=== PATIENT | male | born 1980 | race Caucasian/White ===

== ENCOUNTER 2017-10-31 05:13 | Emergency (ER) | payer MEDICAID ==
[~2017-10-31] VITALS: Ht 175.3 cm; Wt 79.4 kg
[2017-10-31 05:20] VITALS: BP 124/85
== END 2017-10-31 05:53 | disposition home or self-care (01) ==
LOC: ER 05:20
DX: K04.90 Unspecified diseases of pulp and periapical tissues (principal); F17.200 Nicotine dependence, unspecified, uncomplicated
CPT/HCPCS: 99283; A4606; Z7610

== ENCOUNTER 2020-03-04 13:16 | Inpatient (IN) | payer MEDICAID, OTHER ==
[~2020-03-04] VITALS: Ht 172.7 cm; Wt 79.4 kg
[2020-03-04] MEDS ORDERED: FEE PK DOSING 1 MIN EA MC ONE (13:20)
--- NOTE | 2020-03-04 13:25 | NUR ---
bibself, c/o left leg pain, redness and swelling X 2 days, denies injury/trauma 08/26 ps, homeless. to ER bed 4, hooked to monitor, changed to hosp gown, warm blanket provided, awaiting MD rod.
--- NOTE | 2020-03-04 14:04 | NUR ---
RASHI LYLES AT BEDSIDE
--- NOTE | 2020-03-04 14:22 | NUR ---
DREDGE OPERATOR SUPERVISOR AT BEDSIDE
[2020-03-04 14:26] LABS: BASOPHILS % (AUTO) 0.2 % (0.0-2.0); HEMATOCRIT 35 % (39-51); HEMOGLOBIN 11.6 g/dL (13.5-17.5); LYMPHOCYTES # (AUTO) 1.5 /CMM (0.8-4.8); LYMPHOCYTES % (AUTO) 11.8 % (20.0-44.0); MEAN CORPUSCULAR HGB CONC 33 g/dl (31.0-36.0); MEAN CORPUSCULAR VOLUME 79 fL (80-96); MONOCYTES # (AUTO) 0.8 /CMM (0.1-1.30); MONOCYTES % (AUTO) 6.3 % (2.0-12.0); NEUTROPHILS # (AUTO) 10.3 /CMM (1.8-8.9); NEUTROPHILS % (AUTO) 81.7 % (43.0-81.0); PLATELET COUNT (AUTO) 159 /CMM (150-450); RED BLOOD CELL COUNT(AUTO) 4.46 MIL/uL (4.5-6.0); WHITE BLOOD COUNT (AUTO) 12.6 K/uL (4.3-11.0)
[2020-03-04] MEDS ORDERED: VANCOMYCIN 1 GM in IV D5W 250 ML IV ONE (14:30)
[2020-03-04] MEDS ORDERED: HYDROCODONE/APAP 5/325MG 1 EACH TABLET PO ONE (14:30)
[2020-03-04 14:38] LABS: CALCIUM, SERUM 8.5 mg/dL (8.5-10.1); CARBON DIOXIDE 27 mmol/L (21-32); CHLORIDE 95 mmol/L (98-107); GLUCOSE 107 mg/dL (74-106); POTASSIUM 3.8 mmol/L (3.5-5.1); SODIUM SERUM 130 mmol/L (136-145); UREA NITROGEN, BLOOD 12 mg/dL (7-18)
[2020-03-04] MEDS ORDERED: VANCOMYCIN 1 GM VIAL ONE (14:40)
[2020-03-04] MEDS ORDERED: HYDROCODONE/APAP 5/325MG 1 EACH TABLET ONE (14:40)
--- NOTE | 2020-03-04 14:41 | NUR ---
US TECH AT BEDSIDE
[2020-03-04 14:52] LABS: ALANINE AMINOTRANSFERASE 55 U/L (12-78); ALBUMIN 2.8 g/dL (3.4-5.0); ALKALINE PHOSPHATASE 43 U/L (46-116); ASPARTATE AMINOTRANSFERASE 64 U/L (15-37); BILIRUBIN,DIRECT 0.3 mg/dL (0.0-0.2); BILIRUBIN,TOTAL 0.8 mg/dL (0.2-1.0); TOTAL PROTEIN, SERUM 7.2 g/dL (6.4-8.2)
[2020-03-04] MEDS ORDERED: IV NS 0.9% 1,000 ML BAG IV ONE (15:00)
--- NOTE | 2020-03-04 15:14 | NUR ---
PRECISE WINDER AT BEDSIDE
--- NOTE | 2020-03-04 16:02 | NUR ---
urine sample collected and sent to lab
[2020-03-04 16:26] LABS: APPEARANCE,URINE Clear (CLEAR); BILIRUBIN,URINE SMALL (NEGATIVE); BLOOD, URINE Negative Ery/uL (NEGATIVE); COLOR,URINE Yellow (YELLOW); KETONES,URINE 15 (NEGATIVE); LEUKOCYTE ESTERASE ,URINE Negative (NEGATIVE); NITRITE, URINE Negative (NEGATIVE); PH,URINE 6.5 (5.0-8.0); PROTEIN,URINE Trace mg/dl (NEGATIVE); UGLUCOSE Negative (NEGATIVE); UROBILINOGEN,URINE >=8.0 EU/dL (0.2)
[2020-03-04] MEDS ORDERED: Z GUARD REMEDY 2 OZ OINT TP PRN (16:30)
[2020-03-04] MEDS ORDERED: MAG HYDROX/AL HYDROX/SIMETH 30 ML UDC PO PRN (16:30)
[2020-03-04] MEDS ORDERED: ONDANSETRON HCL/PF 4 MG/2 ML VIAL IVP PRN (16:30)
[2020-03-04] MEDS ORDERED: MAGNESIUM HYDROXIDE 30 ML UDC PO PRN (16:30)
[2020-03-04 16:43] LABS: BACTERIA,URINE Few /HPF (None Seen); RBC,URINE 0-2 /HPF (0-2); SQUAMOUS EPITHELIAL CELL,UR Few /HPF (None Seen); WBC,URINE 0-2 /HPF (0-3)
--- NOTE | 2020-03-04 18:06 | NUR ---
REPORT GIVEN TO TONY RICHEY FOR FROYLAN
--- NOTE | 2020-03-04 18:52 | NUR ---
MS RN RECEIVING NOTES RECEIVED PATIENT VIA GURNEY IN MEDICALLY STABLE CONDITION AND VS WNL. PATIENT ON ROOM AIR BREATHING EVENLY WITH NO SOB NOTED. PATIENT COMPLAINING OF LEG PAIN. L ELBOW IV ACCESS GAUGE # 20. SAFETY PRECAUTIONS IN PLACE; BED IN LOW POSITION AND LOCKED, RAILS UP X2, CALL LIGHT WITHIN REACH. WILL ENDORSE TO LEAN MANAGER NURSE.
[2020-03-04 20:00] VITALS: BP 116/68
[2020-03-04] MEDS: ACETAMINOPHEN 325 MG TABLET PO PRN (20:53)
[2020-03-04] MEDS: HYDROCODONE/APAP 5/325MG 1 EACH TABLET PO PRN (20:54)
[2020-03-04] MEDS: IV NS 0.9% 1,000 ML IV SCH (20:55)
[2020-03-04] MEDS ORDERED: VANCOMYCIN 1 GM in IV D5W 250 ML IV SCH (23:00)
[2020-03-04] MEDS: VANCOMYCIN 1 GM in IV D5W 250 ML IV SCH (23:07)
[2020-03-05] MEDS: IV NS 0.9% 1,000 ML IV SCH (02:30)
--- NOTE | 2020-03-05 06:25 | NUR ---
MS RN NOTES AWAKE & RESPONSIVE. NOT IN ANY DISTRESS. NO SOB NOTED. DENIES ANY PAIN OR DISCOMFORT AT THIS TIME. WITH IVF INFUSING WELL. MONITORED ACCORDINGLY. CALL LIGHT WITHIN REACH. BED IN LOWEST POSITION. SR UP X 2 FOR SAFETY. WILL ENDORSE TO NEXT SHIFT.
[2020-03-05] MEDS: VANCOMYCIN 1 GM in IV D5W 250 ML IV SCH ×3 (07:05→22:19)
--- NOTE | 2020-03-05 07:32 | NUR ---
MS RN NOTES RECEIVED PATIENT ASLEEP IN BED, AROUSABLE TO VERBAL AND TACTILE STIMULI. HOB ELEVATED. NO SOB. DENIES ANY C/O PAIN NOR DISCOMFORT AT THIS TIME. IV ACCESS INTACT TO LEFT ELBOW INFUSING NS @ 75ML/HR ALVIN WELL. BED IN LOWEST POSITION, LOCKED. BED ALARM ON. CALL LIGHT WITHIN REACH. ABLE TO VERBALIZE NEEDS.
[2020-03-05 11:18] LABS: BASOPHILS % (AUTO) 0.1 % (0.0-2.0); EOSINOPHILS % (AUTO) 0.2 % (0.0-6.0); HEMATOCRIT 32 % (39-51); HEMOGLOBIN 10.7 g/dL (13.5-17.5); LYMPHOCYTES # (AUTO) 1.2 /CMM (0.8-4.8); LYMPHOCYTES % (AUTO) 10.9 % (20.0-44.0); MEAN CORPUSCULAR HGB CONC 33 g/dl (31.0-36.0); MEAN CORPUSCULAR VOLUME 78 fL (80-96); MONOCYTES % (AUTO) 8.4 % (2.0-12.0); NEUTROPHILS # (AUTO) 9.1 /CMM (1.8-8.9); NEUTROPHILS % (AUTO) 80.4 % (43.0-81.0); PLATELET COUNT (AUTO) 244 /CMM (150-450); RED BLOOD CELL COUNT(AUTO) 4.13 MIL/uL (4.5-6.0); WHITE BLOOD COUNT (AUTO) 11.3 K/uL (4.3-11.0)
[2020-03-05 11:32] LABS: CALCIUM, SERUM 8.2 mg/dL (8.5-10.1); CREATININE 0.9 mg/dL (0.6-1.3); POTASSIUM 3.7 mmol/L (3.5-5.1)
--- NOTE | 2020-03-05 12:15 | NUR ---
MS RN NOTES REPORT GIVEN TO HARSH FOR CONTINUATION OF CARE
--- NOTE | 2020-03-05 12:15 | NUR ---
M/S RN NOTES PATIENT RECEIVED ALERT AND ORIENTED X4, NO RESPIRATORY DISTRESS NOTED, PATIENT HAD TEMP OF 99.8, COOLING MEASURES IN PLACE. IV SITE INTACT AND PATENT ON THE LEFT ELBOW #20G. NS RUNNING AT 100ML/HR. COVID SWAB DONE AND SENT TO LAB. PATIENT'S NEEDS ATTENDED, BED ON LOWEST LOCKED POSITION, CALL LIGHT WITHIN REACH. WILL CONTINUE TO MONITOR.
[2020-03-05] MEDS: IV NS 0.9% 1,000 ML IV PRN (13:14)
[2020-03-05] MEDS: HYDROCODONE/APAP 5/325MG 1 EACH TABLET PO PRN (13:51)
[2020-03-05 16:00] VITALS: BP 114/67
--- NOTE | 2020-03-05 19:00 | NUR ---
M/S RN NOTES PATIENT AWAKE IN BED WATCHING TV, NO RESPIRATORY DISTRESS NOTED, PATIENT WITH NO C/O PAIN AT THIS TIME. SKIN WARM TO TOUCH, IV SITE ON THE RT HAND, INTACT AND PATENT #22G. NS RUNNING AT 100ML/HR. PATIENT'S NEEDS ATTENDED, BED ON LOWEST LOCKED POSITION, CALL LIGHT WITHIN REACH. WILL ENDORSE TO ONCOMING SHIFT
--- NOTE | 2020-03-05 19:27 | NUR ---
RN OPENING NOTES RECEIVED PATIENT AWAEK IN BED. A/OX4. NO SIGNS OF DISTRESS OR DISCOMFORT. BREATHING EVEN AND UNLABORED. IV ACCESS IN R HAND WITH NS INFUSING, PATENT AND INTACT, NO SIGNS OF REDNESS OR INFILTRATION. BED IN LOW LOCKED POSITION WITH SIDE RAILS X2. CALL LIGHT WITHIN REACH. WILL CONTINUE TO MONITOR.
[2020-03-05 20:00] VITALS: BP 122/79
[2020-03-05] MEDS: NICOTINE PATCH (21MG) 21 MG PATCH.TD24 TD SCH (21:49)
[2020-03-05] MEDS: ACETAMINOPHEN 325 MG TABLET PO PRN (21:49)
[2020-03-05] MEDS ORDERED: CLONIDINE HCL 0.1 MG TABLET PO PRN (22:00)
[2020-03-05] MEDS ORDERED: MORPHINE SULFATE INJ 4 MG/ML DISP.SYRIN IV ONE (22:00)
[2020-03-05] MEDS: GABAPENTIN 300 MG CAPSULE PO SCH (22:17)
--- NOTE | 2020-03-05 22:18 | NUR ---
RN NOTES ADMINISTERED MORPHINE 4MG ORDERED FOR L LEG PAIN 08/26. VSS. WILL CONTINUE TO MONITOR
[2020-03-06] MEDS: IV NS 0.9% 1,000 ML IV PRN (05:45)
[2020-03-06] MEDS: VANCOMYCIN 1 GM in IV D5W 250 ML IV SCH ×2 (06:21→19:08)
--- NOTE | 2020-03-06 06:42 | NUR ---
RN CLOSING NOTES PATIENT RESTING IN BED, EASILY AROUSABLE.. A/OX4. NO SIGNS OF DISTRESS OR DISCOMFORT. BREATHING EVEN AND UNLABORED. IV ACCESS IN R HAND WITH VANCO INFUSING, PATENT AND INTACT, NO SIGNS OF REDNESS OR INFILTRATION. ALL NEEDS MET. NO SIGNIFICANT CHANGES THROUGH THE NIGHT. PATIENT REFUSED SKIN ASSESSMENT PHOTO UPDATE, STATES PICTURES WERE JUST TAKEN THE OTHER NIGHT.BED IN LOW LOCKED POSITION WITH SIDE RAILS X2. CALL LIGHT WITHIN REACH. WILL ENDORSE TO AM SHIFT FOR FROYLAN.
--- NOTE | 2020-03-06 07:43 | NUR ---
WOUND CARE CONSULT: REVIEWED CHART, NURSING DOCUMENTATION AND PHOTOS WHICH INDICATE LOWER EXTREMITY REDNESS, SCABS AND DRY SCABS TO UPPER EXTREMITIES, PRESENT ON ADMISSION. WILL SEE PRN. CURRENT ALICIA SCORE IS 18.
[2020-03-06 08:00] VITALS: BP 124/68
[2020-03-06] MEDS: NICOTINE PATCH (21MG) 21 MG PATCH.TD24 TD SCH (08:00)
[2020-03-06] MEDS: GABAPENTIN 300 MG CAPSULE PO SCH ×3 (08:00→16:29)
[2020-03-06] MEDS: HYDROCODONE/APAP 5/325MG 1 EACH TABLET PO PRN (08:05)
--- NOTE | 2020-03-06 08:05 | NUR ---
RM NOTES RECEIVED PATIENT IN THE BED 39 Y/OLD MALE ON R/O COVID ISOLATION. PATIENT A/O X4, NO ACUTE RESPIRATORY DISTRESS, V/S TAKEN STABLE T-98.8 AT THIS TIME. SWOLLEN, AND REDNESS LEFT LOWER LEG, WAS COMPLAINING OF PAIN 7/10 PER PAIN SCALE. ENCOURAGED TO KEEP LEFT LEG ELEVATED USING PILLOWS, PATIENT TOLERATED BREAKFAST WELL, ADMINISTERED NARCO 5/325 PO PRN PER PATIENT REQUEST, CALL LIGHT WITHIN TO REACH, INFUSING VANCOMYCIN 250 ML/HR ON RIGHT HAND INTACT, CONTINUED MONITORING..
--- NOTE | 2020-03-06 10:38 | NUR ---
KAIDEN BERRY GET LAB RESULT CRITICAL POSITIVE FOR COVIS -19, AWARE OR WILL FOLLOW UP WITH TREATMENT.
--- NOTE | 2020-03-06 11:58 | NUR ---
RN NOTES PER HOSPITALIST BECAUSE OF PATIENT POSITIVE COVID, GET TO ORDER AZITHROMYCIN 500 ML IV DAILY, ALSO PATIENT WILL FOLLOW INFECTION CONTROL MD Dr BUSTAMANTE, ORDER TAKEN AND CARRIED OUT.
[2020-03-06] MEDS: AZITHROMYCIN 500 MG in IV D5W 250 ML IV SCH (13:25)
[2020-03-06] MEDS: MORPHINE SULFATE INJ 2 MG/ML DISP.SYRIN IV PRN ×2 (14:06→21:05)
--- NOTE | 2020-03-06 14:06 | NUR ---
RN NOTES ADMINISTERED MORPHINE SULFATE 2 MG/ML IV PUSH FOR LEFT LEG PAIN 08/26 PER PATIENT REQUEST, V/S TAKEN BP -122/68, P-70, R-18. INFUSING ZITHROMAX 250 ML/HR DAILY CONTINUED MONITORING.
--- NOTE | 2020-03-06 14:38 | NUR ---
Social service consult requested by MD for homelessness. Per MD notes and chart review, is a 39-year-old homeless male, recently discharged from [facility] brought in by self with complaints of left lower extremity pain and swelling x2 days. Pt states that he noticed swelling and pain to his left leg which has since been getting progressively worse, especially when bearing weight. Pt was tested for Covid-19 and tested positive as of 03/06/20. FAMILY PARTNER conducted the assessment via phone. FAMILY PARTNER introduced self, explained the role of the SW in the hospital and purpose of the call. Pt is alert and oriented x 4. Pt reports he is homeless and has been for more than 2 years. Pt has been living on the streets. 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 Pt was recently released from [facility]. Pt receives food stamps and GR on a monthly basis. Pt emergency contact is his sister Tess Calderón [phone]. Pt reports he has a history of Severe Anxiety and was taking prescribed Xanax for 5 years. Pt states, he does use Xanax recreationally and buys it off the streets and did so a few weeks ago. Pt denies suicidal and homicidal ideations and visual/auditory hallucinations at this time. Patient does have history of drug drug abuse, but states he has "clean" for over 2 months. Pt has a history of heroin use. Pt denies alcohol use. Pt uses marijuana and cigarettes daily. Pt reports to smoke a pack of cigarettes per day. FAMILY PARTNER provided pt with active listening, emotional support and supportive counseling. FAMILY PARTNER provided pt contact information for [facility] [employer] and encouraged pt to reach out. Pt when medically cleared will need to be referred to isolation and quarantine intake call center by [facility] for placement due to positive Covid-19/homelessness. FAMILY PARTNER updated pt's telephonic case manager Jose.
[2020-03-06 16:00] VITALS: BP 113/73
[2020-03-06] MEDS: ACETAMINOPHEN 325 MG TABLET PO PRN (16:29)
--- NOTE | 2020-03-06 16:29 | NUR ---
RN NOTES ADMINISTERED XANAX 0.5 MG PO PRN FOR ANXIETY, AND TYLENOL 650 MG PO PRN FOR T-99.5. GET ORDER MIDLINE INSERTION.
[2020-03-06] MEDS ORDERED: ALPRAZOLAM 0.25 MG TABLET PO PRN (16:30)
--- NOTE | 2020-03-06 18:30 | NUR ---
RN NOTES PATIENT STABLE, REFUSED PAIN, MEDICATION WERE ADMINISTERED FOR ANXIETY EFFECTIVE, , GET INSERTED MID LINE ON RIGHT UA INTACT, INFUSING VANCOMYCIN 250 ML/HR INTACT. PATIENT USING URINAL. CALL LIGHT WITHIN TO REACH. ENDORSED ONCOMING NURSE FOLLOW PLAN OF CARE.
[2020-03-06] MEDS: HYDROXYCHLOROQUINE 200 MG TABLET PO SCH (18:43)
--- NOTE | 2020-03-06 19:15 | NUR ---
RN OPENING NOTES Received patient asleep, easily awaken. On RA, no SOB/respiratory distress noted. No complaints made at this time. Kept on bed low and lock. On fall and aspiration precautions. Will continue to monitor accordingly.
[2020-03-06 20:58] VITALS: BP 115/74
--- NOTE | 2020-03-06 21:25 | NUR ---
RN NOTES Patient asked for Xanax. Informed patient current ordered Xanax at this time is 0.5mg BID. Per patient he takes 4mg Xanax at home. Patient threaten to leave AMA if not receiving his desired Xanax dose. Explained to patient that MD has to be notified for modification of order. Also explained to patient the importance of being on tele monitor but patient refused despite education given.
[2020-03-06] MEDS ORDERED: ALPRAZOLAM 1 MG TABLET PO ONE (21:30)
[2020-03-06] MEDS ORDERED: ALPRAZOLAM 1 MG TABLET ONE (21:44)
--- NOTE | 2020-03-06 22:04 | NUR ---
RN NOTES Received order from JOHN Dsouza. Administered Xanax 1mg at this time. Patient ok to stay in the hospital. Reoffered to be on tele monitor, patient insisted to refuse at this time. Will continue to monitor accordingly.
--- NOTE | 2020-03-06 23:08 | NUR ---
RN NOTES - PT REFUSED BLOOD DRAW FOR LAB layout technician at bedside to draw for labs, patient refused despite education provided. notified.
[2020-03-07] MEDS: VANCOMYCIN 1 GM in IV D5W 250 ML IV SCH ×3 (02:14→20:59)
[2020-03-07] MEDS: MORPHINE SULFATE INJ 2 MG/ML DISP.SYRIN IV PRN ×3 (06:37→21:01)
--- NOTE | 2020-03-07 06:42 | NUR ---
RN CLOSING NOTES Patient noted to refused CXR and rapid influenza A+B. Per patient he wants to sleep now and to it later. Patient agreed to perform the swab at 0900 upon giving his AM meds. All nursing needs attended. Due meds given as ordered. Medicated for pain, noted effective. Kept on bed clean, dry and comfortable. On fall and aspiration precautions. Call light within easy reach. On contact/airborne precautions observe by all HCPs. Afebrile the whole shift. Refused on tele monitor, Dr. Hoffman aware. Endorsed.
[2020-03-07 08:00] VITALS: BP_SYST 123; BP_SYST 139; BP_DIAS 78; BP_DIAS 94
--- NOTE | 2020-03-07 08:00 | NUR ---
RN NOTES RECEIVED PATIENT IN THE BED A/O X3/4 STABLE NO ACUTE RESPIRATORY DISTRESS, V/S STABLE, MEDICATION WERE ADMINISTERED FOR PAIN EFFECTIVE. MIDLINE ON RIGHT AC AREA INTACT. EDEMA ON LEFT LEG, REDNESS, ENCOURAGED TO KEEP LEFT LEG ELEVATED, PATIENT TURN AND REPOSTION SELF IN THE BED, TOLERATED BREAKFAST WELL, CALL LIGHT WITHIN TO REACH. SAFETY PRECAUTION MAINTAINED ALL THE TIME.
[2020-03-07] MEDS: NICOTINE PATCH (21MG) 21 MG PATCH.TD24 TD SCH (09:10)
[2020-03-07] MEDS: HYDROXYCHLOROQUINE 200 MG TABLET PO SCH ×2 (09:11→21:00)
[2020-03-07] MEDS: ALPRAZOLAM 0.5 MG TABLET PO SCH ×2 (09:11→17:08)
[2020-03-07] MEDS: GABAPENTIN 300 MG CAPSULE PO SCH ×3 (09:11→17:08)
[2020-03-07 12:00] VITALS: BP 116/80
--- NOTE | 2020-03-07 12:21 | NUR ---
RN NOTES ADMINISTERED MORPHINE SULFATE 2 MG/ML IV PUSH FOR PAIN 8/10 LEFT LEG, V/S TAKEN BP-116/80, P-81, R-18. PATIENT REFUSED TELE MONITOR, Dr OBANDO AWARE OF. INFUSING VANCOMYCIN 250 ML/HR ON RIGHT ARM. CALL LIGHT WITHIN TO REACH, CONTINUED MONITORING.
[2020-03-07] MEDS: AZITHROMYCIN 500 MG in IV D5W 250 ML IV SCH (13:39)
--- NOTE | 2020-03-07 15:36 | NUR ---
PT REFUSED 15:00 EKG; RN AWARE
[2020-03-07 16:00] VITALS: BP 116/72
--- NOTE | 2020-03-07 17:49 | NUR ---
RN NOTES ADMINISTERED MILK OF MAGNESIA FOR CONSTIPATION.
--- NOTE | 2020-03-07 19:45 | NUR ---
RN OPENING NOTES Pt IS A COVID-19 POSITIVE Pt. RECEIVED REPORT FROM [employer] KAIDEN VARGHESE. FOUND Pt AWAKE, IN BED, WATCHING TV. Pt IS A/OX4, VERBAL, ABLE TO MAKE NEEDS KNOWN. NO S/S OF ACUTE DISTRESS OR SEVERE SOB NOTED. PER REPORT Pt REFUSED TO WEAR THE TELE MONITOR & DR WOMACK WAS MADE AWARE. Pt IS NOW MS. IV ACCESS ON HILDA MIDLINE. SAFETY MEASURES IN PLACE. BED LOW, LOCKED, HOB ELEVATED, SIDE RAILS UP, CALL LIGHT AND BEDSIDE TABLE WITHIN REACH. WILL CONTINUE TO MONITOR Pt's CONDITION AND SAFETY THROUGHOUT THE NIGHT.
--- NOTE | 2020-03-07 20:06 | NUR ---
RN NOTES PATIENT STABLE REFUSED PAIN AT THIS TIME, ADMINISTERED SCHEDULED MEDICATION, V/S STABLE NEEDS ATTENDED AND ANTICIPATED, ENDORSED ONCOMING NURSE FOLLOW PLAN OF CARE.
[2020-03-07 20:30] VITALS: BP 102/62
[2020-03-07 21:32] LABS: BASOPHILS % (AUTO) 0.3 % (0.0-2.0); EOSINOPHILS % (AUTO) 1.6 % (0.0-6.0); HEMATOCRIT 28 % (39-51); HEMOGLOBIN 9.4 g/dL (13.5-17.5); LYMPHOCYTES # (AUTO) 1.6 /CMM (0.8-4.8); MEAN CORPUSCULAR HGB CONC 33 g/dl (31.0-36.0); MEAN CORPUSCULAR VOLUME 78 fL (80-96); MONOCYTES # (AUTO) 0.6 /CMM (0.1-1.30); MONOCYTES % (AUTO) 9.3 % (2.0-12.0); NEUTROPHILS # (AUTO) 3.7 /CMM (1.8-8.9); NEUTROPHILS % (AUTO) 61.8 % (43.0-81.0); PLATELET COUNT (AUTO) 274 /CMM (150-450)
[2020-03-07 23:14] LABS: ALBUMIN 2.4 g/dL (3.4-5.0); BILIRUBIN,DIRECT 0.1 mg/dL (0.0-0.2); BILIRUBIN,TOTAL 0.2 mg/dL (0.2-1.0); CALCIUM, SERUM 8.9 mg/dL (8.5-10.1); POTASSIUM 3.8 mmol/L (3.5-5.1)
[2020-03-07 23:26] LABS: C-REACTIVE PROTEIN 7.4 mg/dL (0.0-0.9)
[2020-03-08] MEDS: VANCOMYCIN 1 GM in IV D5W 250 ML IV SCH (04:09)
--- NOTE | 2020-03-08 06:45 | NUR ---
RN CLOSING NOTES NO SIGNIFICANT CHANGES IN Pt's CONDITION. Pt IS RESTING COMFORTABLY IN BED. ALL NEEDS MET AND ATTENDED TO. SAFETY MEASURES IN PLACE. NO S/S OF ACUTE DISTRESS OR SOB NOTED DURING THE NIGHT. WILL ENDORSE TO DAYSHIFT RN FOR Pt's FROYLAN.
[2020-03-08 07:12] LABS: CALCIUM, SERUM 8.7 mg/dL (8.5-10.1); CREATININE 0.8 mg/dL (0.6-1.3); POTASSIUM 3.6 mmol/L (3.5-5.1)
[2020-03-08] MEDS: ALPRAZOLAM 0.5 MG TABLET PO SCH (08:35)
[2020-03-08] MEDS: HYDROXYCHLOROQUINE 200 MG TABLET PO SCH (08:35)
[2020-03-08] MEDS: GABAPENTIN 300 MG CAPSULE PO SCH (08:35)
[2020-03-08] MEDS: NICOTINE PATCH (21MG) 21 MG PATCH.TD24 TD SCH (08:43)
[2020-03-08 08:54] VITALS: BP 113/77
--- NOTE | 2020-03-08 10:10 | NUR ---
DRUM SANDER SETTER/AMA NOTE PT FOUND WITH C/O ANXIETY AND RESTLESSNESS. DURING ASSESSMENT, PT BEGAN REQUESTING THAT THE MIDLINE BE REMOVED. WHEN ASKED WHY HE WOULD LIKE IT REMOVED, PT STATES THAT HE WAS GOING TO LEAVE BECAUSE HE DOESNT GET ENOUGH XANAX. ADDITIONAL DOSAGE REQUESTED FROM , HOWEVER REQUEST WAS NOT APPROVED. WHEN NOTIFYING THE PT THAT ADDITIONAL XANAX DOSAGE WOULD NOT BE ORDERED, AND THAT WE CONTINUED TO INSIST THAT HE STAY DUE TO THE NATURE OF HIS COVID 19 STATUS, PT BECAME EXTREMELY IRRITABLE STATING "YOU CANT KEEP ME HEAR, IM A CONVICT" AND "YOU BEST GET OUT OF THE WAY, IM A CONVICT AND I WONT BE LOCKED UP". SECURITY NOTIFIED, HOWEVER PT WAS ABLE TO LEAVE THE HOSPITAL WITH A MIDLINE IN HIS RIGHT UPPER ARM. CASE MANAGEMENT NOTIFIED. INFECTION CONTROL NOTIFIED. NURSING SUPP NOTIFIED. CASE MANAGEMENT TO INFORM [employer] DUE TO PT'S HILDA MIDLINE.
--- NOTE | 2020-03-08 10:45 | NUR ---
TRAVEL ATTENDANTS was informed by continuous pillowcase cutter Chely that pt eloped from the facility with a midline. Pt is positive for Covid. TRAVEL ATTENDANTS called [facility] division and left a voicemail requesting a callback.
[2020-03-08] MEDS ORDERED: ALPRAZOLAM 0.5 MG TABLET PO SCH (13:00)
== END 2020-03-08 10:30 | disposition left against medical advice (07) | DRG 383 ==
LOC: ER 13:19 → MED 18:06 → MEDSG2 03-05 13:37
PROVIDERS: ADMIT Internal Medicine; ATTEND Internal Medicine
PROC: 05HY33Z Insertion of Infusion Device into Upper Vein, Percutaneous Approach (ICD-10-PCS; principal; 2020-03-06)
DX: L03.116 Cellulitis of left lower limb (principal); U07.1 COVID-19; E43 Unspecified severe protein-calorie malnutrition; E87.1 Hypo-osmolality and hyponatremia; F17.200 Nicotine dependence, unspecified, uncomplicated; D50.9 Iron deficiency anemia, unspecified; E86.1 Hypovolemia; Z59.0 Homelessness; F32.9 Major depressive disorder, single episode, unspecified; F41.9 Anxiety disorder, unspecified; F43.10 Post-traumatic stress disorder, unspecified; Z98.890 Other specified postprocedural states; F40.240 Claustrophobia; G89.29 Other chronic pain
CPT/HCPCS: 36415; 73590-TC; 80048-TC; 80076-TC; 80202-TC; 80305; 81000-TC; 82728-TC; 83605-TC; 83615-TC; 84484-TC; 85025-TC; 85385-TC; 85730-TC; 86140-TC; 86803; 87040-TC; 87081-TC; 87806; 93971-TC; G0378; J0456; J2270; J3370; J7030; J7060

== ENCOUNTER 2023-07-10 00:29 | Emergency (ER) | payer OTHER ==
[~2023-07-10] VITALS: Ht 175.3 cm; Wt 79.4 kg
[~2023-07-10 00:29] MED LIST: LORA-259 PO
[2023-07-10 01:10] VITALS: BP 100/54; TEMP 98.4; O2SAT 98
[2023-07-10] MEDS ORDERED: LORA-258 PO (01:52)
[2023-07-10] MEDS ORDERED: CLIN300C12 PO (01:52)
== END 2023-07-10 02:07 | disposition home or self-care (01) ==
LOC: ER 00:31
DX: L03.115 Cellulitis of right lower limb (principal); G47.00 Insomnia, unspecified; F41.9 Anxiety disorder, unspecified; F32.A Depression, unspecified; Z59.00 Homelessness unspecified